=== PATIENT | female | born 1980 | race Caucasian/White ===

== ENCOUNTER 2016-11-19 00:01 | Inpatient (IN) | payer MEDICAID, OTHER ==
[~2016-11-19] VITALS: Ht 160 cm; Wt 76.2 kg
[2016-11-19] MEDS ORDERED: PREN-88 PO (00:37)
[2016-11-19] MEDS ORDERED: DEXT 5%/LR + PITOCIN 20UNITS/L 1,000 ML IV SCH ×2 (00:37→10:15)
[2016-11-19] MEDS ORDERED: MISOPROSTOL 100MCG TABLET VG SCH (00:45)
[2016-11-19] MEDS ORDERED: NALOXONE HCL 0.4 MG/ML 1ML VIAL IM PRN (00:45)
[2016-11-19] MEDS ORDERED: LIDOCAINE HCL 1% 20ML VIAL (Pyxis) INJ INFIL SCH (00:45)
[2016-11-19] MEDS ORDERED: BUTORPHANOL TARTRATE 2 MG/ML VIAL IV PRN ×2 (00:45→15:45)
[2016-11-19] MEDS ORDERED: CARBOPROST TROMETHAMINE 250 MCG/ML AMPUL IM PRN (00:45)
[2016-11-19] MEDS: LACTATED RINGERS 1,000 ML IV SCH ×4 (01:20→12:49)
[2016-11-19 01:50] LABS: CLARITY URINE CLOUDY (CLEAR); COLOR URINE YELLOW (YELLOW); GLUCOSE URINE NEGATIVE (NEGATIVE); KETONES URINE NEGATIVE (NEGATIVE); LEUKOCYTE ESTERASE URINE 3+ (NEGATIVE); NITRITE URINE NEGATIVE (NEGATIVE); OCCULT BLOOD URINE NEGATIVE (NEGATIVE); PROTEIN URINE NEGATIVE (NEGATIVE)
[2016-11-19 01:52] LABS: EOSINOPHILS % 1.2 % (0.0-5.0); HEMATOCRIT. 34.5 % (36.0-48.0); HEMOGLOBIN. 11.9 g/dL (12.0-16.0); LYMPHOCYTES % 28.5 % (20.0-50.0); MEAN CORPUSCULAR HEMOGLOBIN 31.1 pg (28.0-32.0); MEAN PLATELET VOLUME 9.5 fl (7.4-10.4); MONOCYTES % 9.8 % (2.0-8.0); NEUTROPHILS % 59.5 % (40.0-76.0); PLATELET 202 x1000/uL (130-400); RED BLOOD CELL COUNT 3.84 mill/uL (4.2-5.4); RED CELL DISTRIBUTION WIDTH 12.7 % (11.6-14.6)
[2016-11-19 01:59] LABS: INR 0.9; PARTIAL THROMBOPLASTIN TIME 25.5 sec (24.0-34.0); PROTHROMBIN TIME 9.7 sec
[2016-11-19 02:03] LABS: *AMPHETAMINES SCREEN URINE NEGATIVE (NEGATIVE); *BARBITURATES SCREEN URINE NEGATIVE (NEGATIVE); *BENZODIAZEPINES SCREEN URINE NEGATIVE (NEGATIVE); *COCAINE SCREEN URINE NEGATIVE (NEGATIVE); CANNABINOID URINE SCREEN NEGATIVE (NEGATIVE); METHADONE URINE SCREEN NEGATIVE (NEGATIVE); OPIATES URINE SCREEN NEGATIVE (NEGATIVE); PHENCYCLIDINE URINE SCREEN NEGATIVE (NEGATIVE)
[2016-11-19] MEDS ORDERED: DEXT 5%/LACTATED RINGERS 1,000 ML IV ONE (09:15)
[2016-11-19 11:49] LABS: RUBELLA IGG 29.2 IU/mL (4.99-10)
[2016-11-19 11:50] LABS: HEPATITIS B SURFACE ANTIGEN NEGATIVE
[2016-11-19] MEDS ORDERED: CEFAZOLIN SODIUM 1000MG/VIAL ONE (13:52)
[2016-11-19] MEDS ORDERED: SODIUM CHLORIDE 0.9% 10ML VIAL ONE ×2 (13:52→13:58)
[2016-11-19] MEDS ORDERED: OXYTOCIN 10 UNITS/ML 1ML ONE ×2 (13:52→14:44)
[2016-11-19] MEDS ORDERED: FENTANYL CITRATE/PF 50MCG/ML 2ML VIAL ONE (13:55)
[2016-11-19] MEDS ORDERED: MORPHINE SULFATE/PF 1MG/ML 10ML AMP ONE (13:55)
[2016-11-19] MEDS ORDERED: EPHEDRINE SULFATE 50MG/ML VIAL ONE (13:58)
[2016-11-19] MEDS ORDERED: KETOROLAC 60MG/2ML VIAL IM ONE (15:08)
[2016-11-19] MEDS ORDERED: RHO(D) IMMUNE GLOBULIN 300 MCG/SYR IM PRN (15:15)
[2016-11-19] MEDS ORDERED: HYDROMORPHONE HCL/PF 2MG/ML CPJ IM PRN (15:15)
[2016-11-19] MEDS ORDERED: IBUPROFEN 400MG TABLET PO PRN (15:15)
[2016-11-19] MEDS ORDERED: BISACODYL 10MG SUPP PR PRN (15:15)
[2016-11-19] MEDS ORDERED: ONDANSETRON HCL 4MG/2ML VIAL IV PRN (15:45)
[2016-11-19] MEDS ORDERED: KETOROLAC 30MG/ML VIAL IV PRN (15:45)
[2016-11-19] MEDS ORDERED: NALOXONE HCL 0.4 MG/ML 1ML VIAL IV PRN (15:45)
[2016-11-19] MEDS ORDERED: DIPHENHYDRAMINE 50MG/ML VIAL IV PRN (15:45)
[2016-11-19] MEDS: DEXT 5%/LR + PITOCIN 20UNITS/L 1,000 ML IV SCH (16:55)
[2016-11-19 17:05] VITALS: BP 103/70
[2016-11-19 17:35] VITALS: BP 108/70
[2016-11-19 20:00] VITALS: BP 103/68
[2016-11-20] MEDS: DEXT 5%/LR + PITOCIN 20UNITS/L 1,000 ML IV SCH ×2 (00:46→09:46)
[2016-11-20 07:00] LABS: BASOPHILS % 0.4 % (0.0-2.0); EOSINOPHILS % 0.5 % (0.0-5.0); HEMATOCRIT. 30.1 % (36.0-48.0); HEMOGLOBIN. 10.2 g/dL (12.0-16.0); LYMPHOCYTES % 18.1 % (20.0-50.0); MEAN CORPUSCULAR HEMOGLOBIN 30.8 pg (28.0-32.0); MEAN PLATELET VOLUME 8.9 fl (7.4-10.4); MONOCYTES % 6.7 % (2.0-8.0); NEUTROPHILS % 74.3 % (40.0-76.0); PLATELET 162 x1000/uL (130-400)
[2016-11-20 07:34] VITALS: BP 108/68
[2016-11-20 15:51] VITALS: BP 105/71
[2016-11-20 20:00] VITALS: BP 120/82
[2016-11-20] MEDS: IBUPROFEN 800MG TABLET PO PRN (20:14)
[2016-11-21] VITALS: BP 110/79
[2016-11-21 05:30] VITALS: BP 109/74
[2016-11-21 08:00] VITALS: BP 108/79
[2016-11-21] MEDS: IBUPROFEN 800MG TABLET PO PRN ×2 (08:01→21:55)
[2016-11-21] MEDS: ACETAMINOPHEN WITH CODEINE 300/30MG TABLET PO PRN ×2 (08:01→21:54)
[2016-11-21 17:44] VITALS: BP 123/83
[2016-11-21 20:25] VITALS: BP 116/82
[2016-11-22 00:15] VITALS: BP 116/75
[2016-11-22 03:50] VITALS: BP 103/72
[2016-11-22 07:30] VITALS: BP 103/73
[2016-11-22] MEDS: IBUPROFEN 800MG TABLET PO PRN (08:19)
[2016-11-22] MEDS: ACETAMINOPHEN WITH CODEINE 300/30MG TABLET PO PRN (08:19)
== END 2016-11-22 11:45 | disposition home or self-care (01) | DRG 540 ==
LOC: L&D 00:01 → OBSVTOIN 00:01 → L&D 08:44 → 7EST PP/OB 17:16
PROVIDERS: ADMIT Obstetrics & Gynecology; ATTEND Obstetrics & Gynecology
PROC: 10D00Z1 Extraction of Products of Conception, Low, Open Approach (ICD-10-PCS; principal; 2016-11-19 15:15)
DX: O76 Abnormality in fetal heart rate and rhythm complicating labor and delivery (principal); D64.9 Anemia, unspecified; O90.81 Anemia of the puerperium; O69.1XX0 Labor and delivery complicated by cord around neck, with compression, not applicable or unspecified; Z3A.40 40 weeks gestation of pregnancy; Z37.0 Single live birth
CPT/HCPCS: 36415; 80305; 81001; 85025; 85610; 85730; 86592; 86703; 86762; 86850; 86900; 87340; 88307; A4216; G0378; J0171; J0595; J0690; J1885; J2274; J2590; J3010; J7030; J7120